=== PATIENT | male | born 1970 | race Caucasian/White ===

== ENCOUNTER 2017-04-23 03:47 | Emergency (ER) | payer OTHER ==
--- NOTE | 2017-04-23 04:34 | XRAY Report ---
EXAM: CHEST RADIOGRAPHY EXAM DATE: 04/23/2017 04:28 AM. CLINICAL HISTORY: Shortness of breath, cough. COMPARISON: None. TECHNIQUE: 2 views. FINDINGS: Lungs/Pleura: Right perihilar airspace lower lobe opacity with otherwise clear lungs. No pneumothorax or effusion. Mediastinum: Heart and mediastinal contours are unremarkable. Other: None. IMPRESSION: Right perihilar airspace opacity, suspicious for pneumonia. Posttreatment chest suggested to ensure clearance. [facility] Referring Provider Line: [phone] SITE ID: [id number]
--- NOTE | 2017-04-23 04:59 | ED Physician Documentation ---
PD HPI URI - Stated complaint Stated Complaint: COUGH - Chief complaint Chief Complaint: Resp - History obtained from History obtained from: Patient - History of Present Illness Timing - onset: How many days ago (3-4) Timing details: Gradual onset Pain level max: 0 Pain level now: 0 Associated symptoms: Fever (subjective (did not take temperature at home)), Chills, Sweats Improves by: Rest Worsened by: Activity Similar symptoms before: Has not had sx before Recently seen: Not recently seen - Additional information Additional information: c/o dyspnea with exertion, productive cough x 4 days. c/o sweats, chills, fatigue Review of Systems Constitutional: reports: Fever (subjective (feels like he's been having fevers, but has not measured his temperature at home)), Chills, Sweats Throat: denies: Sore throat Cardiac: reports: Reviewed and negative Respiratory: reports: Dyspnea, Cough. denies: Hemoptysis, Wheezing GI: reports: Reviewed and negative PD PAST MEDICAL HISTORY - Past Medical History Past Medical History: Yes Cardiovascular: None Respiratory: None Endocrine/Autoimmune: None GI: GERD : None HEENT: None Psych: None Musculoskeletal: None Derm: None Other Past Medical History: Thalesemia - Past Surgical History Past Surgical History: Yes General: Hiatal hernia repair, Colonoscopy - Present Medications Home Medications: Ambulatory Orders Medication Instructions Recorded Confirmed Azithromycin [Zithromax] 250 mg PO DAILY #4 tablet 04/23/17 Benzonatate [Tessalon Perle] 100 mg PO Q6HR PRN #20 capsule 04/23/17 Oseltamivir [Tamiflu] 75 mg PO BID #9 capsule 04/23/17 guaiFENesin/CODEINE [Robitussin AC] 5 ml PO Q6H PRN #60 udc 04/23/17 - Allergies Allergies/Adverse Reactions: Allergies Allergy/AdvReac Type Severity Reaction Status Date / Time No Known Drug Allergies Allergy Verified 03/25/16 08:24 - Social History Does the pt smoke?: No Smoking Status: Never smoker Does the pt drink ETOH?: No Does the pt have substance abuse?: No - Immunizations Immunizations are current?: Yes - POLST Patient has POLST: No PD ED PE NORMAL - Vitals Vital signs reviewed: Yes - General General: Alert and oriented X 3, No acute distress, Well developed/nourished - HEENT HEENT: Moist mucous membranes - Neck Neck: Supple, no meningeal sign - Cardiac Cardiac: RRR, No murmur, No gallop, No rub - Respiratory Respiratory: No respiratory distress - Derm Derm: Warm and dry - Extremities Extremities: No edema - Neuro Neuro: Alert and oriented X 3 PD ED PE EXPANDED - Respiratory Respiratory: Rhonchi (right mid-lung field) Results - Vitals Vitals: Oxygen O2 Source Room air - Labs Labs: Laboratory Tests 04/23/17 04:11 Influenza A (Rapid) Negative Influenza B (Rapid) Negative Influenza Types A,B Ag - - Rads (name of study) chest xray Radiology: Prelim report reviewed, See rad report PD MEDICAL DECISION MAKING - ED course Complexity details: reviewed results, re-evaluated patient, considered differential, d/w patient ED course: CXR s/o early right-sided pneumonia. Will treat for bacterial causes with zithromax as well as influenza with Tamiflu (patient is "higher risk" for complications of influenza per CDC criteria due to BMI>40) Departure - Departure Disposition: 01 Home, Self Care Clinical Impression: Pneumonia Qualifiers: Pneumonia type: due to unspecified organism Laterality: right Lung location: middle lobe of lung Qualified Code(s): J18.1 - Lobar pneumonia, unspecified organism Condition: Good Instructions: ED Pneumonia Adult Follow-Up: Milo Barnhart DO [Primary Care Provider] - (3-5 days if not improving) Prescriptions: Benzonatate [Tessalon Perle] 100 mg PO Q6HR PRN #20 capsule PRN Reason: Cough Azithromycin [Zithromax] 250 mg PO DAILY #4 tablet guaiFENesin/CODEINE [Robitussin AC] 5 ml PO Q6H PRN #60 udc PRN Reason: Cough Oseltamivir [Tamiflu] 75 mg PO BID #9 capsule Forms: Activity restrictions Discharge Date/Time: 04/23/17 05:40
[2017-04-23] MEDS ORDERED: OSELTAMIVIR 75 MG CAPSULE PO STA (05:23)
[2017-04-23] MEDS ORDERED: AZITHROMYCIN 250 MG TABLET PO STA (05:28)
[2017-04-23] MEDS ORDERED: BENZONATATE 100 MG CAPSULE PO STA (05:28)
[2017-04-23 05:32] VITALS: BP 130/76
== END 2017-04-23 05:40 | disposition home or self-care (01) ==
LOC: ED 03:47
DX: J18.9 Pneumonia, unspecified organism (principal); K21.9 Gastro-esophageal reflux disease without esophagitis
CPT/HCPCS: 71046; 87275; 87276; 99283; A9270

== ENCOUNTER 2020-05-28 07:00 | Outpatient (CLI) | payer OTHER ==
--- NOTE | 2020-05-28 12:28 | XRAY Report ---
PROCEDURE: Lumbar Spine 2 View INDICATIONS: STRAIN OF MUSCLE, FASCIA, AND TENDON OF LOWER BACK TECHNIQUE: 3 views of the lumbar spine were acquired. COMPARISON: None. FINDINGS: Bones: There are 6 nonrib-bearing lumbar type vertebral bodies of normal height and alignment. No milton spicious lytic or blastic osseous lesion. Disc height loss from L2 L3 through L5 S1 with associated d egenerative endplate change and facet hypertrophy. Soft tissues: Overlying bowel gas pattern is normal. No suspicious soft tissue calcifications. IMPRESSION: Mild lower lumbar spine degenerative changes. No acute finding. Reviewed by: Sal Guzman MD on 05/28/2020 12:27 PM PST Approved by: Sal Guzman MD on 05/28/2020 12:27 PM PST Station ID: [id number]
== END 2020-05-28 23:59 | disposition home or self-care (01) ==
LOC: DI.N 07:00
PROVIDERS: ATTEND Family Medicine
DX: M47.816 Spondylosis without myelopathy or radiculopathy, lumbar region (principal); M51.36 Other intervertebral disc degeneration, lumbar region

== ENCOUNTER 2023-09-22 01:15 | Emergency (ER) | payer BC, OTHER ==
[2023-09-22 01:35] LABS: BASOPHILS # (AUTO) 0.1 10^3/uL (0.0-0.1); BASOPHILS % (AUTO) 0.8 %; EOSINOPHILS # (AUTO) 0.2 10^3/uL (0.0-0.7); EOSINOPHILS % (AUTO) 2.2 %; HCT - HEMATOCRIT 40.2 % (42.0-52.0); HGB - HEMOGLOBIN 12.3 g/dL (14.0-18.0); LYMPHOCYTES % (AUTO) 28.5 %; MEAN CORPUSCULAR HEMOGLOBIN 18.4 pg (27.0-31.0); MEAN CORPUSCULAR HGB CONC 30.6 g/dL (32.0-36.0); MEAN PLATELET VOLUME 10.1 fL (7.4-11.4); MONOCYTES # (AUTO) 0.8 10^3/uL (0.0-1.0); MONOCYTES % (AUTO) 7.2 %; NEUTROPHILS # (AUTO) 6.4 10^3/uL (1.5-6.6); NEUTROPHILS % (AUTO) 60.7 %; PLT - PLATELET COUNT 315 10^3/uL (130-450); RED CELL DISTRIBUTION WIDTH 18.8 % (12.0-15.0); WHITE BLOOD COUNT 10.5 x10^3/uL (4.8-10.8)
[2023-09-22 01:40] LABS: SLIDE REVIEW? Indicated
[2023-09-22] MEDS: HYDROmorphone 1 MG/ML CARPUJECT IVP STA (01:41)
[2023-09-22] MEDS: KETOROLAC 30 MG/ML VIAL IVP STA (01:41)
[2023-09-22] MEDS: ONDANSETRON 4 MG/2 ML VIAL IVP STA (01:41)
[2023-09-22 01:50] LABS: ALBUMIN 4.1 g/dL (3.2-5.5); BILIRUBIN,TOTAL 0.6 mg/dL (0.2-1.0); CALCIUM 9.9 mg/dL (8.5-10.3); POTASSIUM 3.6 mmol/L (3.5-4.5); TOTAL PROTEIN 8.2 g/dL (6.4-8.9)
--- NOTE | 2023-09-22 01:57 | CT Report ---
PROCEDURE: Abdomen/Pelvis WO INDICATIONS: R flank to RLQ pain TECHNIQUE: A CT scan of the abdomen and pelvis was performed without the use of intravenous contrast. Images we re recorded and evaluated at appropriate window settings. Reformats: coronal and sagittal. For radiat ion dose reduction, the following was used: automated exposure control, adjustment of mA and/or kV ac cording to patient size. COMPARISON: Lumbar spine radiograph dated 05/28/2020. FINDINGS: Image quality: Diagnostic. Lower chest: Unremarkable. Liver: No contour-deforming mass. Gallbladder: No radiopaque stones or wall thickening. Biliary tree: No intrahepatic or extrahepatic dilation, accounting for age. Spleen: No splenomegaly. Pancreas: No pancreatic ductal dilation. Adrenals: No adrenal nodule. Kidneys and ureters: . Tiny 1 mm nonobstructing stone in left kidney is seen. No left-sided hydroneph rosis or hydroureter. There is mild to moderate right-sided hydronephrosis with 6 mm stone seen in pr oximal right ureter just distal to the right UPJ best seen on series 4 image 88 and series 2 image 85 . This stone measures 974 Hounsfield unit in density. Nonobstructing stones are also noted in right k idney. Stomach, bowel and peritoneum: No gastric or small bowel dilation. No abnormal wall thickening. No pa thologic free fluid. Appendix is visualized and is within normal limits. Lymph nodes: No central or retroperitoneal adenopathy. Vessels: No infrarenal aortic aneurysm. Reproductive organs: Unremarkable. Bladder: Bladder wall thickness is normal, accounting for underdistention. No calcified bladder stone s. Pelvic lymph nodes: No adenopathy by size criteria. Bones: No aggressive osseous abnormality. Other: Small umbilical hernia is seen containing fat only. No significant umbilical hernia. IMPRESSION: 1. 6 mm right proximal ureteral stone with mild to moderate right-sided hydronephrosis. The stone lucy sures 974 Hounsfield unit in density. 2. Nonobstructing stones are also seen in bilateral kidneys. No left-sided hydronephrosis or hydroure ter. No gross abnormality is seen in urinary bladder. 3. No bowel obstruction or abnormal bowel wall thickening. Normal appendix. No free fluid of free air . Reviewed by: John Montmeayor MD on 09/22/2023 1:56 AM PDT Approved by: John Montemayor MD on 09/22/2023 1:56 AM PDT Station ID: [id number]
[2023-09-22 02:00] LABS: PLATELET ESTIMATE, MANUAL NORMAL (130-450,000) (NORMAL)
--- NOTE | 2023-09-22 02:01 | ED Physician Documentation ---
PD HPI ABD PAIN - Stated complaint Stated Complaint: BACK PX/VOMITING - Chief complaint Chief Complaint: Abd Pain - History obtained from History obtained from: Patient - Additional information Additional information: Patient is a 52-year-old with a history of diabetes presenting for evaluation of right flank to right lower quadrant abdominal pain starting approximately 1 hour ago. Pain is sharp. There is associated nausea and vomiting. Denies any history of kidney stones. No hematuria or dysuria. No fevers. Nothing makes the pain better or worse. Review of Systems Constitutional: denies: Fever Cardiac: denies: Chest pain / pressure Respiratory: denies: Dyspnea GI: reports: Abdominal Pain, Vomiting : denies: Dysuria PD PAST MEDICAL HISTORY - Past Medical History Past Medical History: Yes Cardiovascular: None Respiratory: None Endocrine/Autoimmune: Type 2 diabetes GI: GERD : None HEENT: None Psych: None Musculoskeletal: None Derm: None - Past Surgical History Past Surgical History: Yes General: Hiatal hernia repair, Colonoscopy - Present Medications Home Medications: Ambulatory Orders Medication Instructions Recorded Confirmed Azithromycin [Zithromax] 250 mg PO DAILY #4 tablet 04/23/17 Benzonatate [Tessalon Perle] 100 mg PO Q6HR PRN #20 capsule 04/23/17 Oseltamivir [Tamiflu] 75 mg PO BID #9 capsule 04/23/17 guaiFENesin/CODEINE [Robitussin AC] 5 ml PO Q6H PRN #60 udc 04/23/17 Ondansetron Odt [Zofran] 4 mg TL Q6H PRN #10 tablet 09/22/23 Oxycodone HCl/Acetaminophen 1 each PO Q6H PRN #14 tablet 09/22/23 [Percocet 5-325 mg Tablet] Tamsulosin [Flomax] 0.4 mg PO DAILY #14 cap 09/22/23 - Allergies Allergies/Adverse Reactions: Allergies Allergy/AdvReac Type Severity Reaction Status Date / Time No Known Drug Allergies Allergy Verified 09/22/23 01:22 - Social History Does the pt smoke?: No Smoking Status: Never smoker Does the pt drink ETOH?: No Does the pt have substance abuse?: No - Immunizations Immunizations are current?: Yes - POLST Patient has POLST: No PD ED PE NORMAL - General General: Alert and oriented X 3, No acute distress, Well developed/nourished - HEENT HEENT: Atraumatic - Neck Neck: Supple, no meningeal sign - Cardiac Cardiac: RRR, Strong equal pulses - Respiratory Respiratory: No respiratory distress, Clear bilaterally - Abdomen Abdomen: Normal bowel sounds, Soft, Non tender, Non distended - Derm Derm: Warm and dry - Neuro Neuro: Normal speech Results - Vitals Vitals: Vital Signs - 24 hr 09/22/23 09/22/23 09/22/23 01:19 01:21 03:21 Temperature 36.6 C Heart Rate 96 96 74 Respiratory 18 16 Rate Blood Pressure 157/86 H 142/78 H O2 Saturation 95 98 Oxygen O2 Source Room air - Labs Labs: Laboratory Tests 09/22/23 09/22/23 09/22/23 01:30 01:30 03:24 WBC 10.5 RBC 6.70 H Hgb 12.3 L Hct 40.2 L MCV 60.0 L MCH 18.4 L MCHC 30.6 L RDW 18.8 H Plt Count 315 MPV 10.1 Neut # (Auto) 6.4 Lymph # (Auto) 3.0 Maverick # (Auto) 0.8 Eos # (Auto) 0.2 Baso # (Auto) 0.1 Absolute Nucleated RBC 0.00 Nucleated RBC % 0.0 Manual Slide Review Indicated Platelet Estimate NORMAL (130-450,000) RBC Morph Micro Appear 1+ HYPOCHROMASIA Sodium 135 Potassium 3.6 Chloride 98 L Carbon Dioxide 26 Anion Gap 11.0 BUN 18 Creatinine 1.0 Estimated GFR (MDRD) 79 L Glucose 322 H Calcium 9.9 Total Bilirubin 0.6 AST 13 ALT 23 Alkaline Phosphatase 88 Total Protein 8.2 Albumin 4.1 Globulin 4.1 Albumin/Globulin Ratio 1.0 Lipase 48 Urine Color DARK YELLOW Urine Clarity CLEAR Urine pH 5.5 Ur Specific [place] >=1.030 H Urine Protein TRACE Urine Glucose (UA) >=1000 H Urine Ketones TRACE Urine Occult Blood LARGE H Urine Nitrite NEGATIVE Urine Bilirubin NEGATIVE Urine Urobilinogen 0.2 (NORMAL) Ur Leukocyte Esterase NEGATIVE Urine RBC TNTC H Urine WBC 0-3 Ur Squamous Epith Cells FEW Squamous Urine Bacteria Rare Urine Casts 6-10 Hyaline Casts Urine Mucus Few Strands Ur Microscopic Review INDICATED Urine Culture Comments NOT INDICATED PD Medical Decision Making - ED course Complexity details: reviewed results, re-evaluated patient, d/w patient ED course: Patient with right flank pain radiating to right lower quadrant starting about an hour prior to arrival. Vital signs are stable. Associated nausea and vomiting. CBC, chemistries reviewed. Urine analysis with blood. CT scan of the abdomen and pelvis obtained without contrast given presentation with findings of a 6 mm right ureter stone. Pain is controlled after IV Dilaudid, Toradol and Zofran. No signs of sepsis. Patient counseled on need for close follow-up and aware of treatment plan. He is advised on concerning symptoms to return for. Departure - Departure Disposition: Home, Self Care Clinical Impression: Right ureteral stone, Hyperglycemia due to diabetes mellitus Condition: Stable Instructions: ED Hyperglycemia Diabetic, ED Stone Renal W Colic Follow-Up: Bryant New MD [Provider Admit Priv/Credential] - Within 1 week (Urology) Prescriptions: Tamsulosin [Flomax] 0.4 mg PO DAILY #14 cap Oxycodone HCl/Acetaminophen [Percocet 5-325 mg Tablet] 1 each PO Q6H PRN #14 tablet PRN Reason: pain Ondansetron Odt [Zofran] 4 mg TL Q6H PRN #10 tablet PRN Reason: Nausea / Vomiting Comments: Your prescriptions were sent to [facility] in [place]. I am prescribing a short course of narcotic pain medication for you. These are potentially dangerous and addictive medications that should be used carefully. These medications may constipate you. Take an [id number] stool softener (docusate) twice daily with plenty of water while taking these medications. If you go 24 hours without a bowel movement, take caxy-[id number] miralax, per package instructions. Do not drink or drive while taking these medications. If you received narcotic or sedating medications while in the emergency department, do not drive for 24 hours. Store this medication in a safe, secure place and out of reach of children. It is a violation of federal law to give or sell this medication to another person or to use in a manner other than prescribed. The ED will not refill narcotic prescriptions, including prescriptions lost or stolen. To dispose of unwanted medications: 1. [facility] [address] in [place] has a medication drop box. They accept prescription medications (in pill form) Thursday through Thursday 9:00 a.m. to 5:00 p.m. 2. The [facility] [employer] accepts prescription medications (in pill form only) for disposal year round. Call for more information. 3. Contact the [facility] for the next [facility] sponsored prescription drug collection event. , [phone], or [phone]; Note that many narcotic pain relievers also contain Tylenol/acetaminophen. Please ensure that your total dose of acetaminophen from all sources does not exceed 3 g (3000 mg) per day. PROCEDURE: Abdomen/Pelvis WO IMPRESSION: 1. 6 mm right proximal ureteral stone with mild to moderate right-sided hydronephrosis. The stone measures 974 Hounsfield unit in density. 2. Nonobstructing stones are also seen in bilateral kidneys. No left-sided hydronephrosis or hydroureter. No gross abnormality is seen in urinary bladder. 3. No bowel obstruction or abnormal bowel wall thickening. Normal appendix. No free fluid of free air. Forms: PCP List Discharge Date/Time: 09/22/23 03:39
[2023-09-22] MEDS: oxyCODONE/ACET 5/325 Prepack 4 PO STA (03:13)
[2023-09-22] MEDS: ONDANSETRON ODT 4 MG Prepack 2 TL PRN (03:13)
[2023-09-22 03:25] LABS: BILIRUBIN,URINE NEGATIVE (NEGATIVE); GLUCOSE, URINE (UA) >=1000 mg/dL (NEGATIVE); KETONES,URINE (UA) TRACE mg/dL (NEGATIVE); LEUKOCYTE ESTERASE, URINE NEGATIVE (NEGATIVE); NITRITE,URINE NEGATIVE (NEGATIVE); OCCULT BLOOD,URINE LARGE (NEGATIVE); PH,URINE 5.5 PH (5.0-7.5); PROTEIN,URINE TRACE mg/dL (NEGATIVE); UROBILINOGEN,URINE 0.2 (NORMAL) E.U./dL (NORMAL)
[2023-09-22 03:28] LABS: CLARITY,URINE CLEAR (CLEAR)
[2023-09-22 03:31] LABS: WBC,URINE 0-3 /HPF (0-3)
[2023-09-22 03:32] LABS: BACTERIA,URINE Rare /HPF (None Seen); CASTS, URINE 6-10 Hyaline Casts /LPF; MUCUS,URINE Few Strands; RBC,URINE TNTC /HPF (0-5); SQUAMOUS EPITHELIAL CELL,UR FEW Squamous (<= Few)
[2023-09-22 03:39] VITALS: BP 142/78; O2SAT 98
== END 2023-09-22 03:39 | disposition home or self-care (01) ==
LOC: ED 01:15
DX: N20.1 Calculus of ureter (principal); E11.65 Type 2 diabetes mellitus with hyperglycemia
CPT/HCPCS: 36415; 74176; 80053; 81001; 83690; 85025; 96374; 99283; 99284; A9270; J1170; 81003; 87086